=== PATIENT | male | born 1970 | race Caucasian/White ===

== ENCOUNTER 2021-02-25 22:28 | Emergency (ER) | payer OTHER | END 2021-02-26 00:55 | disposition other institution (70) | LOC: FER 22:28 | DX: S82.142A Displaced bicondylar fracture of left tibia, initial encounter for closed fracture (principal); E11.9 Type 2 diabetes mellitus without complications; I10 Essential (primary) hypertension; F17.290 Nicotine dependence, other tobacco product, uncomplicated; W55.22XA Struck by cow, initial encounter; Y92.009 Unspecified place in unspecified non-institutional (private) residence as the place of occurrence of the external cause | CPT/HCPCS: 73560; 96374; 96375; 96376; J1170; J2550 ==

== ENCOUNTER 2022-01-14 09:17 | Emergency (ER) | payer OTHER ==
[~2022-01-14] VITALS: Ht 182.9 cm; Wt 108.9 kg
[2022-01-14 11:50] LABS: ALBUMIN 3.9 g/dL (3.4-5.0); ALKALINE PHOSHATASE 67 U/L (46-116); ALT 34 U/L (16-63); AST 24 U/L (15-37); BILIRUBIN - TOTAL 0.6 mg/dL (0.2-1.0); BUN 20 mg/dL (7-18); BUN/CREAT RATIO (CALC) 21.7 RATIO; C-REACTIVE PROTEIN <0.20 mg/dL (<=0.90); CHLORIDE 102 mmol/L (98-107); CO2 (BICARBONATE) 25 mmol/L (21-32); CREATININE 0.92 mg/dL (0.67-1.17); GLUCOSE 150 mg/dL (74-106); POTASSIUM 4.3 mmol/L (3.5-5.1); TOTAL PROTEIN 6.9 g/dL (6.4-8.2)
[2022-01-14 12:01] LABS: BASOPHIL 0.6 % (0-2); EOSINOPHIL 1.1 % (0-5); HCT 48.3 % (42.0-52.0); HGB 16.4 g/dl (13.2-18.0); LYMPHOCYTE 20.5 % (15-48); MCH 29.3 pg (25.0-31.0); MCV 86.4 fL (78.0-100.0); MONOCYTE 9.3 % (0-12); MPV 11.7 fL (6.0-9.5); NEUTROPHIL 68.2 % (41-80); NRBC 0; PLT 225 K/uL (150-400); RBC 5.59 M/uL (4.70-6.00); RDW 14.1 % (11.5-14.0); WBC 6.5 K/uL (4.0-10.5)
[2022-01-14] MEDS ORDERED: CLEOCIN300 MG PO (12:57)
[2022-01-14] MEDS ORDERED: NORCO 5-325 TA1 EACH PO (12:57)
== END 2022-01-14 13:50 | disposition home or self-care (01) ==
LOC: FER 09:17
PROVIDERS: Emergency Medicine
DX: S80.12XA Contusion of left lower leg, initial encounter (principal); E11.9 Type 2 diabetes mellitus without complications; Z87.891 Personal history of nicotine dependence; W19.XXXA Unspecified fall, initial encounter; Y92.89 Other specified places as the place of occurrence of the external cause; Y99.0 Civilian activity done for income or pay
CPT/HCPCS: 36415; 73590; 80053; 85025; 86140; 93971; J1170; J2405; J3370; J7050